=== PATIENT | male | born 1950 | race Caucasian/White ===

== ENCOUNTER 2023-10-31 10:21 | Day surgery (SDC) | payer OTHER, SELFPAY ==
[2023-10-31] VITALS (9 sets, daily range): BP systolic 140–205; BP diastolic 62–90; BMI 31.7
[2023-10-31] MEDS: LOW STRENGTH ASPIRIN 81 MG PO (11:17)
[2023-10-31] MEDS: NSS 259 ML IV (11:19)
[2023-10-31] MEDS: NSS 1000 IV (14:42)
--- NOTE | 2023-10-31 16:17 | ITS.CL.CATH ---
[employer] - Catheterization
Cardiac Catheterization
Procedure Report:
CARDIAC CATHETERIZATION REPORT
Date of Procedure: 10/31/2023
Referring:Roland Escobar MD
Indication: Abnormal stress test
HEMODYNAMIC DATA
AO: 160/78
LV: 160/20
LEFT VENTRICULOGRAPHY: Normal left ventricular wall motion with EF 59%
CORONARY ANGIOGRAPHY
Dominance: Right
Left Main: Normal
LAD: Trivial luminal irregularities
Circumflex: Normal
RCA: Normal dominant vessel
Closure Device: None-the procedure was performed via the right radial artery. The Baldev's test was normal prior to the procedure.
Radiation (mGy): 316
DAP (cm2.Gy): 31.8
Fluoroscopy time: 12.5 minutes
CONCLUSIONS
1: Systemic hypertension
2: Elevated LVEDP
3. No significant CAD
Copy to: Roland Escobar MD, Cricket Cuello MD
Lamont Hilton MD, [facility], [facility]
== END 2023-10-31 16:45 | disposition home or self-care (01) ==
LOC: CATH 10:21
PROVIDERS: ATTENDING PHYSICIAN Internal Medicine Cardiovascular Disease; FAMILY PHYSICIAN Internal Medicine; OTHER PHYSICIAN Internal Medicine Cardiovascular Disease
DX: R94.39 Abnormal result of other cardiovascular function study (principal); R06.09 Other forms of dyspnea; I10 Essential (primary) hypertension; E78.5 Hyperlipidemia, unspecified; Z85.46 Personal history of malignant neoplasm of prostate; Z82.49 Family history of ischemic heart disease and other diseases of the circulatory system; Z79.82 Long term (current) use of aspirin
CPT/HCPCS: 93458; C1894; Q9967